=== PATIENT | female | born 1970 | race African-American/Black ===

== ENCOUNTER 2016-11-28 01:31 | Emergency (ER) | payer MEDICAID ==
[~2016-11-28] VITALS: Ht 162.6 cm; Wt 61.0 kg
[2016-11-28] MEDS ORDERED: DICYCLOMINE 10 MG/5 ML ORAL SYR PO STA (02:06)
[2016-11-28] MEDS ORDERED: ONDANSETRON HCL 4MG/2ML VIAL IV STA (02:06)
[2016-11-28] MEDS ORDERED: VISCOUS LIDOCAINE 2% 15 ML UDC PO STA (02:06)
[2016-11-28] MEDS ORDERED: MAGNESIUM/ALUMINUM HYDROXIDE/SIMETHICONE 30ML UDC PO STA (02:06)
[2016-11-28] MEDS ORDERED: SODIUM CHLORIDE 0.9% 500 ML IV ONE (02:15)
[2016-11-28] MEDS ORDERED: KETOROLAC 30MG/ML VIAL IV ONE (02:15)
[2016-11-28 02:22] LABS: HEMATOCRIT. 36.6 % (36.0-48.0); HEMOGLOBIN. 11.9 g/dL (12.0-16.0); MEAN CORPUSCULAR HEMOGLOBIN 28.4 pg (28.0-32.0); MEAN CORPUSCULAR HGB CONC 32.6 g/dL (31.0-37.0); MEAN CORPUSCULAR VOLUME 87.1 fL (81.0-99.0); PLATELET 340 x1000/uL (130-400); RED CELL DISTRIBUTION WIDTH 16.8 % (11.6-14.6); WHITE BLOOD COUNT 8.9 x1000/uL (4.5-11.0)
[2016-11-28 02:23] LABS: DIFFERENTIAL COMMENT 1
[2016-11-28 02:28] LABS: CHLORIDE 107 mEq/L (98-107); INDEX HEMOLYSI 1 (1-3); INDEX ICTERIC 1 (1-4); INDEX LIPEMIC 1 (1-3)
[2016-11-28 02:36] LABS: ALANINE AMINOTRANSFERASE 45 IU/L (13-61); ALBUMIN 3.6 g/dL (3.4-5.0); ANION GAP 15; CALCIUM 8.2 mg/dL (8.5-10.1); CARBON DIOXIDE 24 mEq/L (21-32); ETHANOL BLOOD < 10 mg/dL; LIPASE 103 IU/L (73-393); UREA NITROGEN BLOOD 13 mg/dL (7-21); eGFR > 60 mL/min (>60)
[2016-11-28 02:49] LABS: PLATELET ESTIMATE NORMAL
[2016-11-28 02:57] VITALS: BP 180/111
[2016-11-28] MEDS ORDERED: ONDANSETRON 4MG ODT PO ONE (06:15)
== END 2016-11-28 06:42 | disposition home or self-care (01) ==
LOC: ER 01:32
DX: K52.9 Noninfective gastroenteritis and colitis, unspecified (principal); F12.10 Cannabis abuse, uncomplicated
CPT/HCPCS: 36415; 80053; 83690; 85025; 96361; 96374; 96375; 99285; G0482; J1885; J2405; J7040; Q0162; Z7610

== ENCOUNTER 2018-12-15 14:29 | Inpatient (IN) | payer MEDICAID ==
[~2018-12-15] VITALS: Ht 165.1 cm; Wt 52.2 kg
[2018-12-15] MEDS ORDERED: SODIUM CHLORIDE 0.9% 1,000 ML IV ONE (18:15)
[2018-12-15 19:27] LABS: HCG SCREEN NEGATIVE
[2018-12-15 19:29] LABS: CHLORIDE 105 mEq/L (98-107)
[2018-12-15 19:32] LABS: PARTIAL THROMBOPLASTIN TIME 35.1 sec (23.4-31.0); PROTHROMBIN TIME 10.5 sec (9.6-11.0)
[2018-12-15 19:35] LABS: HEMATOCRIT. 22.1 % (36.0-48.0); MEAN CORPUSCULAR HEMOGLOBIN 15.3 pg (28.0-32.0); MEAN CORPUSCULAR VOLUME 56.9 fL (81.0-99.0); MEAN PLATELET VOLUME 8.8 fl (7.4-10.4); PLATELET 613 x1000/uL (130-400); RED BLOOD CELL COUNT 3.89 mill/uL (4.2-5.4); RED CELL DISTRIBUTION WIDTH 23.2 % (11.6-14.6)
[2018-12-15 19:36] LABS: TOTAL IRON BINDING CAPACITY 422 ug/dL (250-450)
[2018-12-15 20:00] LABS: PLATELET ESTIMATE INCREASED
[2018-12-15] MEDS ORDERED: POTASSIUM CHLORIDE 20MEQ TABLET SR PO ONE (20:30)
[2018-12-15] MEDS ORDERED: IPRATROPIUM/ALBUTEROL 0.5-3(2.5)MG/3ML NEB INH PRN (23:30)
[2018-12-15] MEDS ORDERED: CLONIDINE 0.1MG TABLET PO PRN (23:30)
[2018-12-15] MEDS ORDERED: ACETAMINOPHEN 325MG TABLET PO PRN (23:30)
[2018-12-15] MEDS ORDERED: DOCUSATE SODIUM 100MG CAPSULE PO PRN (23:30)
[2018-12-15] MEDS ORDERED: MAGNESIUM/ALUMINUM HYDROXIDE/SIMETHICONE 30ML UDC PO PRN (23:30)
[2018-12-16 05:44] LABS: HEMATOCRIT. 24.3 % (36.0-48.0); RED BLOOD CELL COUNT 4.05 mill/uL (4.2-5.4)
[2018-12-16 05:45] LABS: MEAN CORPUSCULAR VOLUME 60.1 fL (81.0-99.0); MEAN PLATELET VOLUME 8.5 fl (7.4-10.4); PLATELET 534 x1000/uL (130-400); RED CELL DISTRIBUTION WIDTH 26.1 % (11.6-14.6)
[2018-12-16 05:49] LABS: HEMOGLOBIN. 6.9 g/dL (12.0-16.0)
[2018-12-16 05:50] LABS: CHLORIDE 112 mEq/L (98-107)
[2018-12-16 05:57] LABS: LDL CHOLESTEROL 58 mg/dL (5-100)
[2018-12-16 05:58] LABS: HDL CHOLESTEROL 50 mg/dL (40-59)
[2018-12-16 06:00] LABS: CREATINE KINASE 40 IU/L (26-192)
[2018-12-16 06:01] LABS: CREATINE KINASE MB FRACTION < 1.0 ng/mL (0.5-3.6)
[2018-12-16] MEDS: ONDANSETRON HCL 4MG/2ML INJ IV PRN ×2 (06:42→12:45)
[2018-12-16 07:19] LABS: *AMPHETAMINES SCREEN URINE NEGATIVE (NEGATIVE); *BENZODIAZEPINES SCREEN URINE NEGATIVE (NEGATIVE)
[2018-12-16 07:20] LABS: METHADONE URINE SCREEN NEGATIVE (NEGATIVE); OPIATES URINE SCREEN NEGATIVE (NEGATIVE); PHENCYCLIDINE URINE SCREEN NEGATIVE (NEGATIVE)
[2018-12-16 07:21] LABS: *BARBITURATES SCREEN URINE NEGATIVE (NEGATIVE)
[2018-12-16 07:26] LABS: *COCAINE SCREEN URINE PRESUMTIVE POSITIVE (NEGATIVE); CANNABINOID URINE SCREEN PRESUMTIVE POSITIVE (NEGATIVE)
[2018-12-16 07:26] LABS: PLATELET ESTIMATE INCREASED
[2018-12-16] MEDS ORDERED: DIPHENHYDRAMINE 25MG CAPSULE PO NR (09:15)
[2018-12-16] MEDS ORDERED: ACETAMINOPHEN 325MG TABLET PO NR (09:15)
[2018-12-16] MEDS: METOCLOPRAMIDE HCL 10MG/2ML VIAL IV PRN ×2 (09:57→16:47)
[2018-12-16] MEDS: FERROUS SULFATE 325MG TABLET PO SCH ×3 (09:57→16:33)
[2018-12-16 11:15] VITALS: BP 149/81
[2018-12-16 11:22] VITALS: BP 148/81
[2018-12-16] MEDS ORDERED: PROT20 MT (11:30)
[2018-12-16 11:46] VITALS: BP 148/69
[2018-12-16 12:15] VITALS: BP 147/61
[2018-12-16] MEDS: SUCRALFATE 1G TABLET PO SCH ×2 (12:45→16:33)
[2018-12-16 12:49] VITALS: BP 147/72
[2018-12-16 15:14] LABS: HEMATOCRIT 30.2 % (36.0-48.0); HEMOGLOBIN 8.6 g/dL (12.0-16.0)
[2018-12-16 15:20] LABS: CREATINE KINASE 51 IU/L (26-192)
[2018-12-16 15:21] LABS: CREATINE KINASE MB FRACTION < 1.0 ng/mL (0.5-3.6)
[2018-12-16 16:00] VITALS: BP 171/97
[2018-12-16] MEDS ORDERED: MAGNESIUM 4 G PREMIX 100 ML IV NR (16:45)
== END 2018-12-16 17:56 | disposition left against medical advice (07) | DRG 532 ==
LOC: ER 14:29 → 6EST 20:31 → ENRESERV 12-16 07:10
PROVIDERS: ADMIT Internal Medicine; ATTEND Internal Medicine
PROC: 30233N1 Transfusion of Nonautologous Red Blood Cells into Peripheral Vein, Percutaneous Approach (ICD-10-PCS; principal; 2018-12-15)
DX: N92.0 Excessive and frequent menstruation with regular cycle (principal); D47.3 Essential (hemorrhagic) thrombocythemia; D50.0 Iron deficiency anemia secondary to blood loss (chronic); E87.6 Hypokalemia; F19.90 Other psychoactive substance use, unspecified, uncomplicated; K21.9 Gastro-esophageal reflux disease without esophagitis
CPT/HCPCS: 36415; 71045; 80048; 80061; 80305; 82550; 82553; 83540; 83550; 83735; 84443; 84484; 84703; 85014; 85018; 85044; 86850; 86900; 86920; 93005; 96365; 96375; 99285; J2405; J2765; J3475; J7030; J7040; P9016; Q0163

== ENCOUNTER 2023-10-30 16:34 | Emergency (ER) | payer MEDICAID, OTHER ==
[~2023-10-30] VITALS: Ht 165.1 cm; Wt 50.0 kg
[~2023-10-30 16:34] MED LIST: PROT20 MT
[2023-10-30 16:36] VITALS: O2SAT 100
[2023-10-30 17:37] LABS: HEMATOCRIT. 28.8 % (36.0-48.0); HEMOGLOBIN. 8.6 g/dL (12.0-16.0); MEAN CORPUSCULAR HEMOGLOBIN 20.6 pg (28.0-32.0); MEAN CORPUSCULAR VOLUME 68.6 fL (81.0-99.0); MEAN PLATELET VOLUME 8.3 fl (7.4-10.4); PLATELET 594 x1000/uL (130-400); RED BLOOD CELL COUNT 4.19 mill/uL (4.2-5.4); RED CELL DISTRIBUTION WIDTH 20.5 % (11.6-14.6); WHITE BLOOD COUNT 6.3 x1000/uL (4.5-11.0)
[2023-10-30 17:39] LABS: DIFFERENTIAL COMMENT 1
[2023-10-30 17:46] LABS: PROTHROMBIN TIME 11.1 sec (9.6-11.0)
[2023-10-30 17:53] LABS: GIANT PLATELETS 1+; NUCLEATED RED BLOOD CELLS 2 /100 WBC; PLATELET ESTIMATE INCREASED; TARGET CELLS 2+
[2023-10-30 17:55] LABS: ALANINE AMINOTRANSFERASE 13 IU/L (10-49); ALBUMIN 4.8 g/dL (3.2-4.8); ASPARTATE AMINOTRANSFERASE 25 IU/L (<34); BILIRUBIN TOTAL 0.3 mg/dL (0.1-1.0); CALCIUM 9.8 mg/dL (8.7-10.4); CARBON DIOXIDE 27 mEq/L (21-32); CHLORIDE 101 mEq/L (98-107); CREATININE 1.2 mg/dL (0.6-1.0); GLUCOSE 63 mg/dL (70-105); POTASSIUM 3.3 mEq/L (3.5-5.1); PROTEIN TOTAL 8.4 g/dL (6.0-8.3); SODIUM 134 mEq/L (136-145); UREA NITROGEN BLOOD 21 mg/dL (9-23)
[2023-10-30 17:59] LABS: CLARITY URINE TURBID (CLEAR); COLOR URINE DARK YELLOW (YELLOW); GLUCOSE URINE NEGATIVE (NEGATIVE); KETONES URINE NEGATIVE (NEGATIVE); LEUKOCYTE ESTERASE URINE 1+ (NEGATIVE); NITRITE URINE NEGATIVE (NEGATIVE); OCCULT BLOOD URINE NEGATIVE (NEGATIVE); PH URINE 5.5 (4.5-8.0); PROTEIN URINE 1+ (NEGATIVE); SPECIFIC GRAVITY URINE 1.027 (1.005-1.030)
[2023-10-30 18:18] LABS: BACTERIA URINE 1+; HYALINE CASTS URINE 0-5 /lpf; RBC URINE 0-2 /hpf (0-2); SQUAMOUS EPITHELIAL CELL URINE 3+ /lpf (RARE/1+); WBC URINE 0-2 /hpf (0-2)
[2023-10-30] MEDS ORDERED: ONDA4TAB50 PO (18:34)
[2023-10-30] MEDS ORDERED: FAMOTIDINE 20MG TABLET PO ONE (18:45)
[2023-10-30] MEDS ORDERED: ONDANSETRON HCL 4MG TABLET PO ONE (18:45)
[2023-10-30] MEDS ORDERED: MAGNESIUM/ALUMINUM HYDROXIDE/SIMETHICONE 30ML UDC PO ONE (18:45)
[2023-10-30 18:52] VITALS: BP 146/74; PULSE 100; RESP 18; TEMP 98
== END 2023-10-30 18:53 | disposition home or self-care (01) ==
LOC: ER 16:34
DX: R79.9 Abnormal finding of blood chemistry, unspecified (principal); D64.9 Anemia, unspecified; K21.9 Gastro-esophageal reflux disease without esophagitis; Z98.890 Other specified postprocedural states
CPT/HCPCS: 36415; 80053; 81003; 85025; 86850; 86900; 93005; 99284